=== PATIENT | female | born 1945 | race Caucasian/White ===

== ENCOUNTER → 2018-02-14 | Outpatient (CLI) | payer MEDICARE ==
[~2018-02-14] MED LIST: METO25TA35 PO
[2018-02-14 14:38] LABS: ALANINE AMINOTRANSFERASE 35 U/L (12-78); ALBUMIN 3.7 g/dL (3.4-5.0); ANION GAP 7 mmol/L (5-15); BASOPHILS # (AUTO) 0.04 x10^3/uL (0-0.1); BASOPHILS % (AUTO) 1 % (0-1); CALCIUM 9.6 mg/dL (8.5-10.1); CHLORIDE 105 mmol/L (98-107); EOSINOPHILS # (AUTO) 0.04 x10^3/uL (0-0.4); EOSINOPHILS % (AUTO) 1 % (1-7); LYMPHOCYTES # (AUTO) 1.26 x10^3/uL (1-3.4); LYMPHOCYTES % (AUTO) 27 % (22-44); MD NO; MEAN CORPUSCULAR HEMOGLOBIN 30.9 pg (27.0-34.8); MEAN CORPUSCULAR HGB CONC 34.2 g/dL (32.4-35.8); MEAN CORPUSCULAR VOLUME 90.3 fL (80-100); MEAN PLATELET VOLUME 8.1 fL (7.4-10.4); MONOCYTES # (AUTO) 0.39 x10^3/uL (0.2-0.8); MONOCYTES % (AUTO) 8 % (2-9); NEUTROPHILS # (AUTO) 2.93 x10^3/uL (1.8-6.8); NEUTROPHILS % (AUTO) 63 % (42-75); PLATELET COUNT 186 x10^3/uL (130-400); RED BLOOD COUNT 4.79 x10^6/uL (3.82-5.3); RED CELL DISTRIBUTION WIDTH 14.2 % (9.6-15.2)
[2018-02-14 14:40] LABS: ALKALINE PHOSPHATASE 84 U/L (45-117); BILIRUBIN,TOTAL 0.7 mg/dL (0.2-1.0); TOTAL PROTEIN 7.3 g/dL (6.4-8.2)
== END | disposition home or self-care (01) ==
LOC: STAR 13:32
PROVIDERS: ATTEND Obstetrics & Gynecology
DX: Z01.818 Encounter for other preprocedural examination (principal); N81.2 Incomplete uterovaginal prolapse; N81.6 Rectocele; K46.9 Unspecified abdominal hernia without obstruction or gangrene
CPT/HCPCS: 36415; 71046; 80053; 85025; 93005

== ENCOUNTER 2018-02-18 05:27 | Day surgery (SDC) | payer MEDICARE ==
[~2018-02-18] VITALS: Ht 165.1 cm; Wt 54.3 kg
[2018-02-18] MEDS ORDERED: LACTATED RINGERS 1,000 ML IV SCH (06:13)
[2018-02-18 06:39] VITALS: BP 149/91
[2018-02-18] MEDS ORDERED: FLUORESCEIN SODIUM 500 MG/5 ML ONE (07:04)
[2018-02-18] MEDS ORDERED: NEOMY/POLYMYXIN B GU IRR. 1 ML IRRIG ONE (07:04)
[2018-02-18] MEDS ORDERED: BUPIVACAINE/PF-EPI 0.25% 1:200K ONE (07:04)
[2018-02-18] MEDS ORDERED: LIDOCAINE 1%-EPI 1:100K, 30ML ONE (07:04)
[2018-02-18] MEDS ORDERED: FENTANYL PF 250 MCG/5ML ONE (07:15)
[2018-02-18] MEDS ORDERED: DEXAMETHASONE 4 MG/ML, 1ML ONE (07:26)
[2018-02-18] MEDS ORDERED: SUCCINYLCHOLINE 20 MG/ML, 10ML ONE (07:26)
[2018-02-18] MEDS ORDERED: NEOSTIGMINE 1 MG/ML, 10ML ONE (07:26)
[2018-02-18] MEDS ORDERED: ONDANSETRON 2MG/ML, 2ML ONE (07:26)
[2018-02-18] MEDS ORDERED: CEFAZOLIN 1,000 MG ONE (07:26)
[2018-02-18] MEDS ORDERED: PROPOFOL 10 MG/ML, 20ML ONE (07:26)
[2018-02-18] MEDS ORDERED: GLYCOPYRROLATE 0.2MG/1ML, 5ML ONE (07:26)
[2018-02-18] MEDS ORDERED: ROCURONIUM 10MG/ML,5ML ONE (07:26)
[2018-02-18] MEDS ORDERED: OXYcodone IR 5MG TABLET PO ONE (07:30)
[2018-02-18] MEDS ORDERED: FAMOTIDINE 20 MG TABLET PO ONE ×2 (07:30→08:30)
[2018-02-18] MEDS ORDERED: ACETAMINOPHEN 500 MG TABLET PO ONE (07:30)
[2018-02-18] MEDS ORDERED: ONDANSETRON ODT 8 MG PO ONE (07:30)
[2018-02-18] MEDS ORDERED: ONDANSETRON ODT 8 MG PO PRN (08:30)
[2018-02-18] MEDS ORDERED: METOPROLOL 1 MG/ML, 5ML IV PRN (08:30)
[2018-02-18] MEDS ORDERED: MORPHINE SULFATE 4 MG/ML, 1ML IVPush PRN (08:30)
[2018-02-18] MEDS ORDERED: ONDANSETRON 2MG/ML, 2ML IV PRN (08:30)
[2018-02-18] MEDS ORDERED: ACETAMINOPHEN 325 MG TABLET PO PRN (08:30)
[2018-02-18] MEDS ORDERED: OXYcodone 5 MG/5 ML ORAL.SOL UDC PO PRN (08:30)
[2018-02-18] MEDS ORDERED: FAMOTIDINE 20 MG/2 ML IVPush ONE (08:30)
[2018-02-18] MEDS ORDERED: DIAZEPAM 5 MG/ML, 2ML IVPush PRN (08:30)
[2018-02-18] MEDS ORDERED: HYDROmorphone 1 MG/ML, 1ML IV PRN (08:30)
[2018-02-18] MEDS ORDERED: ALBUTEROL SULFATE 2.5 MG/3 ML NPPB PRN (08:30)
[2018-02-18] MEDS ORDERED: FUROSEMIDE 20 MG/2 ML ONE (08:45)
[2018-02-18] MEDS ORDERED: INDIGO CARMINE 0.8%, 5ML ONE (08:45)
[2018-02-18] MEDS ORDERED: FENTANYL PF 100 MCG/2ML ONE (10:14)
[2018-02-18] MEDS: FENTANYL PF 100 MCG/2ML IV PRN ×2 (10:17→10:32)
[2018-02-18] MEDS ORDERED: METOPROLOL 1 MG/ML, 5ML ONE (10:18)
== END 2018-02-18 14:33 | disposition home or self-care (01) ==
LOC: OUT 05:27
PROVIDERS: ATTEND Obstetrics & Gynecology
DX: N81.4 Uterovaginal prolapse, unspecified (principal); N39.3 Stress incontinence (female) (male); I10 Essential (primary) hypertension; K21.9 Gastro-esophageal reflux disease without esophagitis
CPT/HCPCS: 57265; 57282; 57288; 58260; 88307; J0330; J0690; J1100; J1940; J2405; J2704; J2710; J3010; J3360; J3490; J7120; C1771